=== PATIENT | female | born 1955 | race Caucasian/White ===

== ENCOUNTER 2019-10-22 07:30 | Inpatient (IN) ==
[2019-10-22] MEDS ORDERED: SCOPOLAMINE 1 PATCH PATCH TOPICAL PRN (07:37)
[2019-10-22] MEDS ORDERED: SODIUM CHLORIDE 0.9% IV ONE ×2 (09:02→09:03)
[2019-10-22] MEDS ORDERED: VANCOMYCIN IV ONE (09:02)
[2019-10-22] MEDS ORDERED: TOBRAMYCIN SULFATE IV ONE (09:03)
[2019-10-22] MEDS ORDERED: TOBRAMYCIN SULFATE 1.2 GM VIAL TOPICAL ONE (09:14)
[2019-10-22 09:15] LABS: Basophils # (Auto) 0.02 K/mcL (0.00-0.30); Basophils % (Auto) 0.2 % (0.0-2.0); Eosinophils # (Auto) 0.02 K/mcL (0.00-0.70); Eosinophils % (Auto) 0.2 % (0.0-7.0); Granulocytes % (Auto) 81.4 % (38.0-78.0); Hematocrit 41.1 % (34.1-44.9); Hemoglobin 13.7 g/dL (11.2-15.7); Mean Cell Volume 93.2 fL (80.0-100.0); Mean Corpuscular HGB Conc 33.3 g/dL (31.0-36.0); Mean Platelet Volume 9.2 fL (7.4-10.4); Monocytes # (Auto) 0.66 K/mcL (0.10-0.90); Monocytes % (Auto) 7.2 % (1.0-12.0); Platelet Count 302 K/mcL (140-440); RBC 4.41 M/mcL (3.59-5.38); Red Cell Distribution Width 12.9 % (11.5-14.5); WBC 9.1 K/mcL (4.50-11.00)
[2019-10-22] MEDS ORDERED: VANCOMYCIN 1 GM VIAL TOPICAL ONE (09:15)
[2019-10-22 09:28] LABS: Appearance,Urine CLEAR; Bacteria,Urine 0 /hpf (0); Bilirubin,Urine NEG (NEG); Color,Urine YELLOW; Culture Indicated,Urine NO; Glucose,Urine (UA) NEGATIVE (NEG); Ketones,Urine 20 mg/dL (NEG); Leukocyte Esterase,Urine NEG /uL (NEG); Mucus,Urine MANY /hpf (0); Nitrate,Urine NEG (NEG); Protein,Urine 100 mg/dL (NEG); Specific Gravity,Urine 1.031 (1.000-1.035); Urine Amorphous Crystals FEW /hpf (0); Urine Blood NEG mg/dL (<0.03); Urine Hyaline Cast 11 /lpf (0-2); Urine RBC 1 /hpf (0-1); Urine Squamous Epithelial Cell 1 /hpf (0-4); Urine Transitional Epi Cells 1 /hpf (0-2); Urine WBC 8 /hpf (0-4)
[2019-10-22 09:40] LABS: Blood Urea Nitrogen 18 mg/dl (8-23); Calcium 9.3 mg/dl (8.6-10.4); Carbon Dioxide 24 mmol/L (22-30); Chloride 99 mmol/L (96-108); Glomerular Filtration Rate 59; Glucose 179 mg/dL (70-105)
[2019-10-22] MEDS ORDERED: ceFAZolin 3 GM in DEXTROSE 5% IN WATER 50 ML IV SCH (10:30)
[2019-10-22] MEDS ORDERED: PROPOFOL 200 MG/20 ML VIAL IV ONE (10:32)
[2019-10-22] MEDS ORDERED: DEXAMETHASONE 10 MG/ML VIAL ONE (10:32)
[2019-10-22] MEDS ORDERED: ONDANSETRON 4 MG/2 ML VIAL ONE (10:32)
[2019-10-22] MEDS ORDERED: KETAMINE HCL 50 MG/ML ML ONE (10:32)
[2019-10-22] MEDS ORDERED: fentaNYL 100 MCG/2 ML VIAL IV ONE (10:32)
[2019-10-22] MEDS ORDERED: HYDROmorphone 1 MG/ML SYRINGE ONE (10:32)
[2019-10-22] MEDS ORDERED: LIDOCAINE HCL/PF 100 MG/5 ML SYRINGE IV ONE (10:32)
[2019-10-22] MEDS ORDERED: VANCOMYCIN 1,500 MG in 0.9 % SODIUM CHLORIDE 500 ML IV SCH (10:45)
[2019-10-22] MEDS ORDERED: KETOROLAC 15 MG/ML VIAL IV PRN (11:16)
[2019-10-22] MEDS ORDERED: ACETAMINOPHEN 1,000 MG/100 ML BOTTLE IV ONE (11:16)
[2019-10-22] MEDS ORDERED: LACTATED RINGERS 250 ML IV PRN (11:16)
[2019-10-22] MEDS ORDERED: PROMETHAZINE 25 MG/ML VIAL IV PRN (11:16)
[2019-10-22] MEDS ORDERED: IPRATROPIUM/ALBUTEROL 3 ML AMPUL.NEB NEB PRN (11:16)
[2019-10-22] MEDS ORDERED: MEPERIDINE 25 MG/ML SYRINGE IV PRN (11:16)
[2019-10-22] MEDS ORDERED: HYDROmorphone 0.5 MG/0.5 ML SYRINGE IV PRN (11:16)
[2019-10-22] MEDS ORDERED: ONDANSETRON 4 MG/2 ML VIAL IV PRN ×2 (11:16→11:38)
[2019-10-22] MEDS ORDERED: diphenhydrAMINE 50 MG/ML VIAL IV PRN (11:16)
[2019-10-22] MEDS ORDERED: NALOXONE HCL 0.4 MG/ML VIAL IV PRN (11:16)
[2019-10-22] MEDS ORDERED: fentaNYL 100 MCG/2 ML VIAL IV PRN (11:16)
[2019-10-22] MEDS ORDERED: LACTATED RINGERS 1,000 ML IV SCH (11:30)
[2019-10-22] MEDS ORDERED: BISACODYL 10 MG SUPP.RECT PR PRN (11:38)
[2019-10-22] MEDS ORDERED: DEXTROSE 50% 50 ML VIAL IV PRN (11:38)
[2019-10-22] MEDS ORDERED: POLYETHYLENE GLYCOL 3350 17 GM PACKET PO PRN (11:38)
[2019-10-22] MEDS ORDERED: MAGNESIUM HYDROXIDE 30 ML ORAL.SUSP PO PRN (11:38)
[2019-10-22] MEDS ORDERED: FLEETS ADULT ENEMA PR PRN (11:38)
[2019-10-22] MEDS ORDERED: BENZOCAINE/MENTHOL 1 LOZENGE PO PRN (11:38)
[2019-10-22] MEDS ORDERED: DEXTROSE 31 GM ORAL.SUSP PO PRN (11:38)
--- NOTE | 2019-10-22 11:38 | Brief Operative Note ---
Brief Operative Note Date of procedure: 10/22/19 Pre-op diagnosis: Infected total knee arthoplasty Post-op diagnosis: same Procedure: Right knee I&D with polyethylene insert exchange, and placement of antibiotic beads Grafts/Implants: Yes (12mm CS insert) Anesthesia: GLMA Findings: findings consistant with infection, no gross purulence however Complications: none Surgeon: Delonte Kendall Fan Runner: Seema Rivero Estimated blood loss (cc): 30 Specimens Removed/Pathology: other (culture and sensitivity x 2) Condition: stable Disposition: PACU
[2019-10-22] MEDS ORDERED: VANCOMYCIN PER PHARMACY IV SCH (11:46)
--- NOTE | 2019-10-22 12:07 | Internal Medicine Consult Note ---
HPI Consult Narrative cc:: CC: Priyank Kerr 64-year-old female who underwent right total knee arthroplasty 5 weeks ago and did well postoperatively however the past week has developed increased redness swelling to the joint. Arthrocentesis and fluid analysis consistent with infection. Patient underwent washout with polyethylene exchange and antibiotic bead placement today. Past medical history please diabetes hypertension obstructive sleep apnea. Patient is still sedated from anesthesia and unable to gather review of systems PFSH PFS Social History (Updated 10/22/19 @ 12:04 by Priyank Kerr DO) smoking status: Never smoker additional history: Past medical history: Diabetes hypertension obstructive sleep apnea GERD Past surgical history: Right total knee arthroplasty 5 weeks ago, right shoulder surgery, hysterectomy, appendectomy Family history: Social history: Patient denies tobacco or alcohol MEDS/ALLERGIES Home Medications and Allergies Home Medications Medication Instructions Recorded Confirmed Type duloxetine 60 mg PO DAILY 09/06/19 09/15/19 History hydrochlorothiazide 12.5 mg PO DAILY 09/06/19 09/15/19 History omeprazole 20 mg PO HS 09/06/19 09/15/19 History ropinirole 1 mg PO HS 09/06/19 09/15/19 History aspirin 81 mg PO BID #30 tab.chew 09/16/19 Rx hydrocodone-acetaminophen 1 - 2 each PO Q6 #75 tab 09/16/19 Rx meloxicam 7.5 mg PO QAM #30 tab 09/16/19 Rx Allergies Allergy/AdvReac Type Severity Reaction Status Date / Time Penicillins Allergy Severe Anaphylaxis Verified 09/06/19 14:15 Sulfa (Sulfonamide Allergy Severe Swelling Verified 09/06/19 14:15 Antibiotics) of Lip/Tongue/Throat EXAM Constitutional Vitals: Temp Resp BP Pulse Ox 97.0 F 14 128/82 97 10/22/19 08:12 10/22/19 08:12 10/22/19 08:12 10/22/19 08:12 Exam: General: Sleeping from anesthesia fact postop, no acute Distress Eyes/N/T: PERRL, Head/Neck: neck supple, normocephalic atraumatic CV: RRR, No murmurs, normal s1/s2 Pulm: Clear b/l, no wheezing/rhonchi/rales Abd: soft, nontender, +BS x4 Ext: no clubbing/cyanosis/edema. Right knee and dressings Neuro: Sedated from anesthesia, pupils equal round and reactive Skin: warm/dry DATA Data Completed and Pending Labs on day of discharge: Labs from last 24 hours 10/22/19 10/22/19 10/22/19 08:08 08:08 08:00 WBC 9.1 RBC 4.41 Hgb 13.7 Hct 41.1 MCV 93.2 MCH 31.1 MCHC 33.3 RDW 12.9 Plt Count 302 MPV 9.2 Gran % 81.4 H Lymph % (Auto) 11.0 L Mcdonald % (Auto) 7.2 Eos % (Auto) 0.2 Baso % (Auto) 0.2 Gran # 7.41 Lymph # (Auto) 1.00 L Mcdonald # (Auto) 0.66 Eos # (Auto) 0.02 Baso # (Auto) 0.02 Sodium 137 Potassium 3.3 Chloride 99 Carbon Dioxide 24 Anion Gap 14.0 BUN 18 Creatinine 1.0 GFR Calculation 59 Glucose 179 H Calcium 9.3 Urine Color Yellow Urine Appearance Clear Urine pH 5.0 Ur Specific [place] 1.031 Urine Protein 100 A Urine Glucose (UA) Negative Urine Ketones 20 A Urine Occult Blood Neg Urine Nitrate Neg Urine Bilirubin Neg Urine Urobilinogen 2.0 A Ur Leukocyte Esterase Neg Urine RBC 1 Urine WBC 8 H Ur Squamous Epith Cells 1 Ur Transition Epith Cell 1 Amorphous Crystals Few A Urine Bacteria 0 Hyaline Casts 11 H Urine Mucus Many A Ur Culture Indicated? No COVID-19 PCR 10/22/19 08:00 WBC RBC Hgb Hct MCV MCH MCHC RDW Plt Count MPV Gran % Lymph % (Auto) Mcdonald % (Auto) Eos % (Auto) Baso % (Auto) Gran # Lymph # (Auto) Mcdonald # (Auto) Eos # (Auto) Baso # (Auto) Sodium Potassium Chloride Carbon Dioxide Anion Gap BUN Creatinine GFR Calculation Glucose Calcium Urine Color Urine Appearance Urine pH Ur Specific [place] Urine Protein Urine Glucose (UA) Urine Ketones Urine Occult Blood Urine Nitrate Urine Bilirubin Urine Urobilinogen Ur Leukocyte Esterase Urine RBC Urine WBC Ur Squamous Epith Cells Ur Transition Epith Cell Amorphous Crystals Urine Bacteria Hyaline Casts Urine Mucus Ur Culture Indicated? COVID-19 PCR Covid-19 negative A/P Narrative A/P Narrative: A: *Right knee prosthetic joint infection:* *DM: *HTN: *KAREN: *GERD: *Depression: P: -Abx per ID, Vanc/Rocephin pending wound and blood cx's -cont home hctz in AM - -SSI -pt/ot -ppx: per ortho/home ppi Time Spent With Patient Time: Total time spent is greater than 50% in coordination of care (as documented) at patient's floor/unit and/or counseling patient:
[2019-10-22] MEDS ORDERED: cefTRIAXone 2 GM in DEXTROSE 5% IN WATER 50 ML IV SCH (12:15)
--- NOTE | 2019-10-22 12:24 | Infectious Disease Consult ---
HPI Consult Narrative cc:: CC: Priyank Kerr 64-year-old lady with recent Hx of right total knee arthroplasty about 5 weeks ago, with complete post-op recovery was seen yesterday by her Ortho surgeon with c/o redness, swelling and pain in right knee for few days. A knee tap revealed very high number of PMNs in synovial fluid. Pt was taken to OR by Dr Kendall and underwent washout with polyethylene exchange and antibiotic bead placement. Pt was seen in PACU and couldnot provide any Hx due to her mental status. Labs reveal normal WBC and Cr. Review of Systems ROS unobtainable: due to mental status PFSH PFS Social History smoking status: Never smoker additional history: Past medical history: Diabetes hypertension obstructive sleep apnea GERD Past surgical history: Right total knee arthroplasty 5 weeks ago, right shoulder surgery, hysterectomy, appendectomy Family history: Social history: Patient denies tobacco or alcohol MEDS/ALLERGIES Home Medications and Allergies Home Medications Medication Instructions Recorded Confirmed Type duloxetine 60 mg PO DAILY 09/06/19 09/15/19 History hydrochlorothiazide 12.5 mg PO DAILY 09/06/19 09/15/19 History omeprazole 20 mg PO HS 09/06/19 09/15/19 History ropinirole 1 mg PO HS 09/06/19 09/15/19 History aspirin 81 mg PO BID #30 tab.chew 09/16/19 Rx hydrocodone-acetaminophen 1 - 2 each PO Q6 #75 tab 09/16/19 Rx meloxicam 7.5 mg PO QAM #30 tab 09/16/19 Rx Allergies Allergy/AdvReac Type Severity Reaction Status Date / Time Penicillins Allergy Severe Anaphylaxis Verified 09/06/19 14:15 Sulfa (Sulfonamide Allergy Severe Swelling Verified 09/06/19 14:15 Antibiotics) of Lip/Tongue/Throat Physical Examination Vital Signs Vital signs: Temp Resp BP Pulse Ox 36.1 C 14 128/82 97 10/22/19 08:12 10/22/19 08:12 10/22/19 08:12 10/22/19 08:12 Constitutional General appearance: comatose (recovering from anesthesia) Respiratory Auscultation: bilateral: clear Cardiovascular Cardiovascular: regular rate and rhythm Gastrointestinal Gastrointestinal: normoactive bowel sounds Musculoskeletal Musculoskeletal: other (right knee in surgical dressing ) Results Laboratory Findings CBC and BMP: 10/22/19 08:08 10/22/19 08:08 Abnormal lab findings: Abnormal Labs 10/22/19 10/22/19 10/22/19 08:00 08:08 08:08 Gran % 81.4 H Lymph % (Auto) 11.0 L Lymph # (Auto) 1.00 L Glucose 179 H Urine Protein 100 A Urine Ketones 20 A Urine Urobilinogen 2.0 A Urine WBC 8 H Amorphous Crystals Few A Hyaline Casts 11 H Urine Mucus Many A A/P Narrative A/P Narrative: A: 1. Rt knee prosthetic joint infection: based on clinical signs/symptoms of redness and swelling, and pain; and high WBC count of synovial fluid aspirated 10/20 - Cx so far NGTD - s/p irrigation and debridement with Polyethylene exchange and placement of antibiotic beads today. Per Ortho plan is for one-stage exchange and no subseq surgeries 2. DM2 Recommendations: - Continue IV Vanc per pharmacy assisted dosing. Check trough before the 4th dose (target 10-20) - Start IV Ceftriaxone 2 gm q24 hrs, 1st dose now - await C/S to decide further choice and duration of therapy - will add PO Rifampin before discharge as 300 mg bid. - send 2 sets of blood Cx - anticipate 6 weeks of IV therapy and rest PO therapy for 4.5 mntths - await MRSA nasal swab. If positive, will consider decolonization with 5 day course of intranasal mupirocin bid and below neck whole body chlorhexidine. will follow Rafael Ulloa MD Infectious Diseases Time Spent With Patient Time: Total time spent is greater than 50% in coordination of care (as documented) at patient's floor/unit and/or counseling patient:
--- NOTE | 2019-10-22 12:26 | Nephrology Progress Note ---
SUBJECTIVE Subjective Patient information: Note initiated : 10/22/19 at 12:24 pm Service Date, if different from initiated Date: [] Patient: Sherley Howard 64 y/o F admitted on 10/22/19 for Right Knee I&D. Chief Complaint: [No urine output] Interval history: Narrative: Constitutional Vitals: Vital Signs Temp Resp BP Pulse Ox 36.1 C 14 128/82 97 10/22/19 08:12 10/22/19 08:12 10/22/19 08:12 10/22/19 08:12 Period Temp Pulse Resp BP Sys/Spann Pulse Ox Last 24 Hr 36.1 C 14 128/82 97 Intake and Output 10/21/19 10/22/19 10/22/19 21:59 05:59 13:59 Intake Total 236 Balance 236 Weight 74.162 kg Patient Weight 10/23/19 05:59 Weight 74.162 kg Intake & Output: Intake & Output 10/21/19 10/22/19 10/22/19 21:59 05:59 13:59 Intake Total 236 Balance 236 Weight 74.162 kg Intake: Clear Carbohydrate Drink 236 A/P Narrative A/P Narrative: Narrative: Time Spent With Patient Time: Total time spent is greater than 50% in coordination of care (as docume nted) at patient's floor/unit and/or counseling patient:
[2019-10-22] MEDS: cefTRIAXone 2 GM in DEXTROSE 5% IN WATER 50 ML IV SCH (12:33)
[2019-10-22] MEDS: 0.9 % SODIUM CHLORIDE 1,000 ML IV SCH ×2 (13:19→22:43)
--- NOTE | 2019-10-22 13:38 | XRay Report ---
HISTORY: Postop incision and drainage of infected right knee FINDINGS: Multiple radiopaque pellets have been inserted into the joint. The majority of them are in the suprapatellar bursa. Many of them appear to extend beyond the upper border of a normal suprapatellar bursa. The overall diameter of the pellets is approximately 5 mm in diameter. The joint prosthesis appears well-positioned. There is no evidence of osteomyelitis or loosening of the prosthesis. No fracture or destructive bone lesion are present. There is a surgical drain along the lateral aspect of the suprapatellar bursa. IMPRESSION: Knee joint space distended with numerous surgically implanted antibiotic pellets Interpreted and Authenticated by: Zacarias Rivas 10/22/19
[2019-10-22] MEDS: 0.9 % SODIUM CHLORIDE 10 ML SYRINGE IV SCH ×2 (14:08→21:13)
[2019-10-22] MEDS: HYDROcodone/APAP 10/325MG TABLET PO PRN ×3 (15:23→23:32)
[2019-10-22] MEDS: INSULIN LISPRO 1 UNIT/0.01 ML UNIT SQ SCH ×2 (16:56→21:11)
[2019-10-22] MEDS ORDERED: HYDROCHLOROTHIAZIDE 12.5 MG CAPSULE PO SCH (21:00)
[2019-10-22] MEDS: DOCUSATE SODIUM 100 MG CAPSULE PO SCH (21:12)
[2019-10-22] MEDS: OMEPRAZOLE 20 MG CAPSULE PO SCH (21:12)
[2019-10-22] MEDS: rOPINIRole 1 MG TABLET PO SCH (21:12)
[2019-10-22] MEDS: ASPIRIN 81 MG TAB.CHEW PO SCH (21:12)
[2019-10-22] MEDS: SENNOSIDES 1 TABLET PO SCH (21:12)
[2019-10-22] MEDS: VANCOMYCIN 1,000 MG in 0.9 % SODIUM CHLORIDE 250 ML IV SCH (22:43)
[2019-10-23] MEDS: HYDROcodone/APAP 10/325MG TABLET PO PRN ×4 (03:29→22:01)
[2019-10-23] MEDS: 0.9 % SODIUM CHLORIDE 10 ML SYRINGE IV SCH ×3 (04:39→20:14)
[2019-10-23 06:25] LABS: Basophils # (Auto) 0.01 K/mcL (0.00-0.30); Basophils % (Auto) 0.1 % (0.0-2.0); Eosinophils # (Auto) 0.02 K/mcL (0.00-0.70); Eosinophils % (Auto) 0.3 % (0.0-7.0); Granulocytes % (Auto) 66.6 % (38.0-78.0); Hematocrit 32.5 % (34.1-44.9); Hemoglobin 10.8 g/dL (11.2-15.7); Lymphocytes # (Auto) 1.72 K/mcL (1.50-4.80); Lymphocytes % (Auto) 24.3 % (15.5-49.0); Mean Corpuscular HGB Conc 33.2 g/dL (31.0-36.0); Mean Platelet Volume 9.4 fL (7.4-10.4); Monocytes # (Auto) 0.62 K/mcL (0.10-0.90); Monocytes % (Auto) 8.7 % (1.0-12.0); Platelet Count 249 K/mcL (140-440); RBC 3.42 M/mcL (3.59-5.38); WBC 7.1 K/mcL (4.50-11.00)
[2019-10-23] MEDS: INSULIN LISPRO 1 UNIT/0.01 ML UNIT SQ SCH ×4 (07:11→20:14)
[2019-10-23 07:30] LABS: Erythrocyte Sedimentation Rate 61 mm/hr (0-20)
--- NOTE | 2019-10-23 07:50 | General Surgery Progress Note ---
SUBJECTIVE Subjective Patient information: Note initiated : 10/23/19 at 7:45 am Service Date, if different from initiated Date: [] Patient: Sherley Howard 64 y/o F admitted on 10/22/19 for Right Knee I&D. Chief Complaint: [POD 1 s/p right knee I&D] Interval history: Narrative: No acute events overnight. Pain is controlled. Denies chest pain, shortness of breath or new complaints. Constitutional Vitals: Vital Signs Temp Pulse Resp BP Pulse Ox 97.7 F 64 16 110/62 97 10/23/19 03:26 10/23/19 03:26 10/23/19 03:26 10/23/19 03:26 10/23/19 03:26 Period Temp Pulse Resp BP Sys/Spann Pulse Ox Last 24 Hr 96.5 F-98.2 F 53-95 12-21 103-154/62-89 90-100 Intake and Output 10/22/19 10/23/19 10/23/19 21:59 05:59 13:59 Intake Total 880 1390 Output Total 480 715 Balance 400 675 Weight 189 lb Intake & Output: Intake & Output 10/22/19 10/23/19 10/23/19 21:59 05:59 13:59 Intake Total 880 1390 Output Total 480 715 Balance 400 675 Weight 189 lb Intake: IV 100 1190 Sodium Chloride 0.9% 1,000 ml @ 940 100 mls/hr IV .Q10H [facility] Rx#: [id number] Vancomycin 1,000 mg In Sodium 250 Chloride 0.9% 250 ml @ 250 mls/ hr IV Q12H [facility] Rx#:[id number] Oral 780 200 Output: Drainage 50 Right Knee 50 Drainage 30 15 Right Knee 30 15 Void Amount 400 700 Other: Meal Dinner Percent of Meal Consumed 100% Genera; alert and oriented, non acute distress, appropriate right knee: dressing is in place. Clean and dry with ROSEANN drain in place. Foot warm well perfused. A/P Narrative A/P Narrative: Narrative: POD 1 s/p right TKA I&D and poly exchange for infection -- WBAT-- PT/OT -- cultures pending: continue IV abx per ID- vanc -- d/c drain today -- PICC line for termite technician abx -- oral pain medications -- oral diet -- Prophy: IS, SCDs, dvt prophy, ambulation -- Dispo: pending on culture results.. They want to see if they can do IV abx at home. Time Spent With Patient Time: Total time spent is greater than 50% in coordination of care (as documented) at patient's floor/unit and/or counseling patient:
[2019-10-23] MEDS: ASPIRIN 81 MG TAB.CHEW PO SCH ×2 (08:37→20:13)
[2019-10-23] MEDS: DOCUSATE SODIUM 100 MG CAPSULE PO SCH ×2 (08:37→20:13)
[2019-10-23] MEDS: cefTRIAXone 2 GM in DEXTROSE 5% IN WATER 50 ML IV SCH (09:22)
[2019-10-23] MEDS: VANCOMYCIN 1,000 MG in 0.9 % SODIUM CHLORIDE 250 ML IV SCH ×2 (10:37→22:01)
[2019-10-23] MEDS: HYDROCHLOROTHIAZIDE 12.5 MG CAPSULE PO SCH (10:37)
[2019-10-23] MEDS: DULoxetine 30 MG CAPSULE PO SCH (10:41)
[2019-10-23] MEDS: 0.9 % SODIUM CHLORIDE 1,000 ML IV SCH ×2 (11:01→17:56)
[2019-10-23] MEDS: SENNOSIDES 1 TABLET PO SCH (20:13)
[2019-10-23] MEDS: OMEPRAZOLE 20 MG CAPSULE PO SCH (20:14)
[2019-10-23] MEDS: rOPINIRole 1 MG TABLET PO SCH (20:14)
[2019-10-23] MEDS ORDERED: METHOCARBAMOL 750 MG TABLET PO ONE (22:53)
[2019-10-24] MEDS: HYDROcodone/APAP 10/325MG TABLET PO PRN ×5 (01:54→23:14)
[2019-10-24] MEDS: 0.9 % SODIUM CHLORIDE 10 ML SYRINGE IV SCH ×3 (05:51→20:41)
[2019-10-24] MEDS: INSULIN LISPRO 1 UNIT/0.01 ML UNIT SQ SCH ×4 (07:22→20:45)
--- NOTE | 2019-10-24 08:31 | General Surgery Progress Note ---
SUBJECTIVE Subjective Patient information: Note initiated : 10/24/19 at 8:24 am Service Date, if different from initiated Date: [] Patient: Sherley Howard 64 y/o F admitted on 10/22/19 for Right Knee I&D. Chief Complaint: [S/P RIGHT KNEE I&d WITH LINER EXCHANGE AND ABX BEAD PLACEMENT] Interval history: Narrative:PATIENT IS DOING WELL AND CERTAINLY IMPROVED COMPARED TO PRE-OPERATIVELY. SHE HAS NO PARTICULAR COMPLAINTS TODAY. SHE DENIES ANY FEVER, CHILLS, OR CALF TENDERNESS. Constitutional Vitals: Vital Signs Temp Pulse Resp BP Pulse Ox 96.8 F L 72 18 126/77 95 10/24/19 07:17 10/24/19 07:17 10/24/19 07:17 10/24/19 07:17 10/24/19 07:17 Period Temp Pulse Resp BP Sys/Spann Pulse Ox Last 24 Hr 96.8 F-98.3 F 61-78 16-20 110-126/62-77 92-97 Intake and Output 10/23/19 10/24/19 10/24/19 21:59 05:59 13:59 Intake Total 860 710 Output Total 900 1500 Balance -40 -790 Weight 195 lb Intake & Output: Intake & Output 10/23/19 10/24/19 10/24/19 21:59 05:59 13:59 Intake Total 860 710 Output Total 900 1500 Balance -40 -790 Weight 195 lb Intake: IV 250 Vancomycin 1,000 mg In Sodium 250 Chloride 0.9% 250 ml @ 250 mls/ hr IV Q12H [facility] Rx#:[id number] Oral 860 460 Output: Void Amount 900 1500 Other: Meal Lunch Percent of Meal Consumed 100% Urine Appearance Clear Clear Urine Color Bright Yellow Pale Urine Odor Normal Normal Extremities Exam Extremities exam: Present calf tenderness (NEGATIVE BILATERALLY), Luiz's sign (NEGATIVE BILATERALLY), Foot pink and warm and neurovascular intact Additional comments: RIGHT KNEE INCISION IS HEALING AND DESTINI ARE INTACT. NO SIGNIFICANT DRAINAGE NOTED ON BANDAGE. Expanded Lower Extremity Exam Knee exam: Present swelling and tenderness A/P Assessment and plan (1) Septic joint of right knee joint: Status: Acute Narrative A/P Narrative: Narrative:CONTINUE ABX PER INFECTIOUS DISEASE. START PT. PICC LINE PLACEMENT TOMORROW. LIKELY DISCHARGE TO HOME TOMORROW FOLLOWING PICC LINE. FOLLOW-UP WITH JOSE IN 2 WEEKS FOR WOUND CHECK AND STAPLE REMOVAL. PLACE AQUACEL DRESSING PRIOR TO DISCHARGE x7DAYS. Time Spent With Patient Time: Total time spent is greater than 50% in coordination of care (as documented) at patient's floor/unit and/or counseling patient:
[2019-10-24] MEDS: DULoxetine 30 MG CAPSULE PO SCH (08:48)
[2019-10-24] MEDS: DOCUSATE SODIUM 100 MG CAPSULE PO SCH ×2 (08:48→21:37)
[2019-10-24] MEDS: ASPIRIN 81 MG TAB.CHEW PO SCH ×2 (08:49→21:37)
[2019-10-24] MEDS: cefTRIAXone 2 GM in DEXTROSE 5% IN WATER 50 ML IV SCH (08:49)
[2019-10-24] MEDS: HYDROCHLOROTHIAZIDE 12.5 MG CAPSULE PO SCH (08:49)
[2019-10-24] MEDS: VANCOMYCIN 1,000 MG in 0.9 % SODIUM CHLORIDE 250 ML IV SCH ×2 (10:12→21:38)
--- NOTE | 2019-10-24 14:00 | Internal Med Progress Note ---
SUBJECTIVE Subjective Patient information: Note initiated : 10/24/19 at 1:58 pm Service Date, if different from initiated Date: [] Patient: Sherley Howard 64 y/o F admitted on 10/22/19 for Right Knee I&D. Chief Complaint: [] Interval history: Narrative: Pt feels bettter. Still has knee pain, rates it 3-6/10 based on whether it is after or before taking her pain meds. Denied any n/v, diarrhea, fever, chills. Mentions that she lives in [facility]. She prefers home health for buttermaker helper IV antibiotics. Mentions her daughetr is a nurse and she lives with her. Her can also help with PICC line management based on his own experience.Mentions that she doesnt want to go to a correction. Constitutional Vitals: Vital Signs Temp Pulse Resp BP Pulse Ox 36.7 C 72 66 H 114/72 94 10/24/19 11:35 10/24/19 07:17 10/24/19 11:35 10/24/19 11:35 10/24/19 11:35 Period Temp Pulse Resp BP Sys/Spann Pulse Ox Last 24 Hr 36.0 C-36.8 C 61-78 16-66 110-126/62-77 92-97 Intake and Output 10/23/19 10/24/19 10/24/19 21:59 05:59 13:59 Intake Total 860 710 720 Output Total 900 1500 1300 Balance -40 -790 -580 Weight 88.451 kg 88.451 kg Patient Weight 10/25/19 05:59 Weight 88.451 kg Intake & Output: Intake & Output 10/23/19 10/24/19 10/24/19 21:59 05:59 13:59 Intake Total 860 710 720 Output Total 900 1500 1300 Balance -40 -790 -580 Weight 88.451 kg 88.451 kg Intake: IV 250 Vancomycin 1,000 mg In Sodium 250 Chloride 0.9% 250 ml @ 250 mls/ hr IV Q12H [facility] Rx#:[id number] Oral 860 460 720 Output: Void Amount 900 1500 1300 Other: Meal Lunch Lunch Percent of Meal Consumed 100% 75% Feeding Ability Independent Urine Appearance Clear Clear Clear Urine Color Bright Yellow Pale Pale Urine Odor Normal Normal Normal Exam: ao x 3, in nad right knee wrapped in surgical dressing, drain pulled out can wiggle toes of right foot without any difficulty OBJ DATA Labs CBC & Chem 7: 10/23/19 05:18 10/22/19 08:08 Labs: Abnormal Lab Results 10/23/19 10/23/19 10/22/19 05:18 05:18 08:08 RBC 3.42 L Hgb 10.8 L Hct 32.5 L Gran % Lymph % (Auto) Lymph # (Auto) ESR 61 H Glucose 179 H C-Reactive Protein 10.3 H Urine Protein Urine Ketones Urine Urobilinogen Urine WBC Amorphous Crystals Hyaline Casts Urine Mucus 10/22/19 10/22/19 08:08 08:00 RBC Hgb Hct Gran % 81.4 H Lymph % (Auto) 11.0 L Lymph # (Auto) 1.00 L ESR Glucose C-Reactive Protein Urine Protein 100 A Urine Ketones 20 A Urine Urobilinogen 2.0 A Urine WBC 8 H Amorphous Crystals Few A Hyaline Casts 11 H Urine Mucus Many A Meds: Medications Hydrocodone Bitart/Acetaminophen ([place] 10/325mg) 0 tab PO Q4HP PRN; Protocol PRN Reason: PAIN LEVEL 3-6 Last Admin: 10/24/19 13:20 Dose: 1 tab Documented by: Aspirin (Aspirin) 81 mg PO BID [facility] Last Admin: 10/24/19 08:49 Dose: 81 mg Documented by: Bisacodyl (Dulcolax) 10 mg NE Q2-3DAYS PRN PRN Reason: Constipation Dextrose (Dextrose 50%) 0 ml IV UD PRN PRN Reason: Hypoglycemia Diagnostic Test (Pha) (Accu-Chek) 1 each FS ACHS [facility] Last Admin: 10/24/19 11:32 Dose: 1 each Documented by: Diphenhydramine HCl (Benadryl) 25 mg PO Q6 [facility] Docusate Sodium (Colace) 100 mg PO BID [facility] Last Admin: 10/24/19 08:48 Dose: 100 mg Documented by: Duloxetine HCl (Cymbalta) 60 mg PO DAILY [facility] Last Admin: 10/24/19 08:48 Dose: 60 mg Documented by: Glucose (Insta-Glucose) 15 gm PO PRN PRN PRN Reason: Hypoglycemia Hydrochlorothiazide (O[place]ic) 12.5 mg PO DAILY [facility] Last Admin: 10/24/19 08:49 Dose: 12.5 mg Documented by: Ceftriaxone Sodium 2 gm/ (Dextrose) 50 mls @ 100 mls/hr IV Q24H [facility] Last Admin: 10/24/19 08:49 Dose: 100 mls/hr Documented by: Vancomycin HCl 1,000 mg/ (Sodium Chloride) 250 mls @ 250 mls/hr IV Q12H [facility] Last Admin: 10/24/19 10:12 Dose: 250 mls/hr Documented by: Insulin Human Lispro (Humalog) 0 unit SQ ACHS [facility]; Protocol Last Admin: 10/24/19 11:35 Dose: Not Given Documented by: Magnesium Hydroxide (Milk Of Magnesia) 30 ml PO BIDP PRN PRN Reason: Constipation Methocarbamol (Robaxin) 750 mg PO Q6HP PRN PRN Reason: Muscle Spasm Morphine Sulfate (Morphine) 0 mg IV Q1HP PRN; Protocol PRN Reason: PAIN LEVEL > 6 Last Admin: 10/23/19 07:22 Dose: 2 mg Documented by: Omeprazole (Prilosec) 20 mg PO QHS [facility] Last Admin: 10/23/19 20:14 Dose: 20 mg Documented by: Ondansetron HCl (Zofran) 4 mg IV Q4HP PRN; Protocol PRN Reason: Nausea And Vomiting Last Admin: 10/22/19 14:07 Dose: 4 mg Documented by: Polyethylene Glycol (Miralax) 17 gm PO DAILYP PRN PRN Reason: Constipation Ropinirole HCl (Requip) 1 mg PO [facility] Last Admin: 10/23/19 20:14 Dose: 1 mg Documented by: Scopolamine (Transderm-Scop) 1 patch TOPICAL PREOP PRN PRN Reason: Nausea And Vomiting Last Admin: 10/22/19 08:58 Dose: 1 patch Documented by: Senna (Senokot) 2 tab PO [facility] Last Admin: 10/23/19 20:13 Dose: 2 tab Documented by: Sodium Biphosphate/Sodium Phosphate (Fleets Adult) 1 dose NE Q3-4DAYS PRN PRN Reason: Constipation Sodium Chloride (Saline Flush) 10 ml IV Q8 [facility] Last Admin: 10/24/19 12:53 Dose: Not Given Documented by: Throat Lozenges (Cepacol) 1 lozenge PO PRN PRN PRN Reason: Sore Throat Vancomycin HCl (Vancomycin Per Pharmacy) 1 order IV UD [facility]; Protocol A/P Narrative A/P Narrative: Narrative: A: 1. Rt knee prosthetic joint infection: due to Staph epidermidis, sensi pending based on clinical signs/symptoms of redness and swelling, and pain; and high WBC count of synovial fluid aspirated 10/20 - blood Cx so far NGTD - s/p irrigation and debridement with Polyethylene exchange and placement of antibiotic beads today. Per Ortho plan is for one-stage exchange and no subseq surgeries - ON IV vanc and IV ceftriaxone. Vanc trough of 12.5 noted 2. DM2 Recommendations: - Continue IV Vanc per pharmacy assisted dosing. Check weekly levels - Continue IV Ceftriaxone 2 gm q24 hrs - await final sensitivity to decide further choice of therapy - start PO Rifampin 300 mg bid. - anticipate 6 weeks of IV therapy and rest PO therapy for 4.5 mnths - will talk to CM/SW about optimal disposition for pt as she lives in [place], ID: home health vs travel to a local hospital daily for IV antibiotics. - follow up labs: CBC, CMP weekly ESR and CRP every other week will follow Rafael Ulloa MD Infectious Diseases Time Spent With Patient Time: Total time spent is greater than 50% in coordination of care (as documented) at patient's floor/unit and/or counseling patient:
[2019-10-24] MEDS: METHOCARBAMOL 750 MG TABLET PO PRN ×2 (17:10→23:14)
[2019-10-24] MEDS: diphenhydrAMINE 25 MG CAPSULE PO SCH (17:12)
[2019-10-24] MEDS: RIFAMPIN 300 MG CAPSULE PO SCH (20:41)
[2019-10-24] MEDS: rOPINIRole 1 MG TABLET PO SCH (21:37)
[2019-10-24] MEDS: OMEPRAZOLE 20 MG CAPSULE PO SCH (21:37)
[2019-10-24] MEDS: SENNOSIDES 1 TABLET PO SCH (21:37)
[2019-10-25] MEDS: diphenhydrAMINE 25 MG CAPSULE PO SCH ×5 (01:00→23:46)
[2019-10-25] MEDS: HYDROcodone/APAP 10/325MG TABLET PO PRN ×5 (03:49→21:00)
[2019-10-25] MEDS: 0.9 % SODIUM CHLORIDE 10 ML SYRINGE IV SCH ×4 (06:26→20:51)
[2019-10-25] MEDS: RIFAMPIN 300 MG CAPSULE PO SCH ×2 (07:18→20:50)
[2019-10-25] MEDS: INSULIN LISPRO 1 UNIT/0.01 ML UNIT SQ SCH ×4 (07:24→20:53)
--- NOTE | 2019-10-25 07:51 | General Surgery Progress Note ---
SUBJECTIVE Subjective Patient information: Note initiated : 10/25/19 at 7:49 am Service Date, if different from initiated Date: [] Patient: Sherley Howard 64 y/o F admitted on 10/22/19 for Right Knee I&D. Chief Complaint: [] Interval history: Narrative: Feeling much better Constitutional Vitals: Vital Signs Temp Pulse Resp BP Pulse Ox 97.7 F 70 18 103/61 94 10/25/19 07:25 10/25/19 07:25 10/25/19 07:25 10/25/19 07:25 10/25/19 07:25 Period Temp Pulse Resp BP Sys/Spann Pulse Ox Last 24 Hr 97.2 F-98.8 F 68-79 16-66 103-127/61-81 93-98 Intake and Output 10/24/19 10/25/19 10/25/19 21:59 05:59 13:59 Intake Total 1360 790 Output Total 2550 900 Balance -1190 -110 Weight 193 lb 8 oz Intake & Output: Intake & Output 10/24/19 10/25/19 10/25/19 21:59 05:59 13:59 Intake Total 1360 790 Output Total 2550 900 Balance -1190 -110 Weight 193 lb 8 oz Intake: IV 250 Vancomycin 1,000 mg In Sodium 250 Chloride 0.9% 250 ml @ 250 mls/ hr IV Q12H [facility] Rx#:[id number] Oral 1360 540 Output: Void Amount 2550 900 Other: Meal Dinner Percent of Meal Consumed 100% Feeding Ability Independent Urine Appearance Clear Clear Urine Color Pale [place] Urine Odor Normal Normal A/P Narrative A/P Narrative: Narrative:POD#3 s/p I&D infected R TKA-stable awaiting picc line placement and abx sensitivities to be able to discharge ok to d/c from ortho standpoint whenever infectious disease is ready Time Spent With Patient Time: Total time spent is greater than 50% in coordination of care (as documented) at patient's floor/unit and/or counseling patient:
--- NOTE | 2019-10-25 08:36 | Operative Note ---
DATE OF OPERATION: 10/22/2019 PREOPERATIVE DIAGNOSIS: Right knee infected total knee arthroplasty. POSTOPERATIVE DIAGNOSIS: Right knee infected total knee arthroplasty. PROCEDURE PERFORMED: Incision and drainage with irrigation and debridement of right infected total knee arthroplasty with polyethylene exchange to a 12 mm cruciate substituting insert, as well as antibiotic bead placement. SURGEON: Delonte Kendall M.D. SALES REPRESENTATIVE UNIFORMS: Seema Rivero PA-C. The PA's assistance was required for the safe and efficient completion of the entire case. This provider's expertise and technical skill were required throughout the case. The PA assisted with preoperative coordination, intraoperative retraction, wound closure, dressing and splint application, as well as postoperative documentation and care coordination. DRAINS: Large Hemovac. SPECIMENS: Culture and sensitivity x2, as well as removed polyethylene insert. BLOOD LOSS: 30 mL. COMPLICATIONS: None. POSTOPERATIVE CONDITION: Stable. INDICATIONS FOR SURGERY: This is a 64-year-old female who underwent a total knee arthroplasty approximately 5 weeks ago by me. She had done well for the first 4 weeks and then starting week 5 had slowly increasing pain. She started developing fever and redness. She had the knee aspirated yesterday afternoon and white count in the knee fluid was over 70,000. She did have a low-grade fever. FINDINGS AT SURGERY: There were findings consistent with infection, although not gross purulence. There did appear to be a biofilm. Post-procedure showed a clean joint with satisfactory knee range of motion and stability. PROCEDURE IN DETAIL: The patient had been seen in preoperative holding and informed consent had been obtained after discussion of risks and benefits of surgery. Risks including, but not limited to, bleeding; continued infection; injury to nerves, blood vessels, and other surrounding structures; anesthetic risks; incomplete or no resolution of the infection; possibility of needing further washouts and surgery; possibility of stiffness, pain, swelling. She understood and wished to proceed. The correct operative site was marked and then patient was taken to the operating room. General anesthesia was induced. Timeout was performed verifying patient name, operative site, and plan after she had been carefully prepped and draped in normal sterile fashion. Ioban was used to cover all skin surfaces. Leg was elevated the tourniquet was inflated. Midline incision was used through her prior scar through skin and subcutaneous tissue. Upon getting to the subcutaneous, there did appear to be opening of the deep suture line at the superior medial aspect with some serosanguineous drainage. We went ahead and removed the suture material and then cultured the joint with two separate cultures. While not grossly purulent, there was what appeared to be bacterial biofilm in the joint. Once we fully exposed the joint, we removed the prior polyethylene insert and then began aggressively debriding and performing synovectomy removing the biofilm. Once we had removed all biofilm as reasonable as possible, we then filled the joint with a mixture of saline and iodine in a 50:50 ratio. The joint was filled and this was left for a minute, and then I pulse lavaged for a minute. We repeated this three more times. The last time then we irrigated with IrriSept. After a minute, I then flexed the knee up and the 12 insert was impacted. The antibiotic beads had already been made, and the knee was then re-extended. A large Hemovac was placed out the superior lateral pouch and then the antibiotic beads were placed in the joint. The knee was then flexed about 30 degrees and then a monofilament barbed suture was used to close the deep closure; one running mid-patella distally and one running mid-patella proximally. I then used a #1 PDS in a [id number] at the superior medial margin of the patella closure in the inferior medial just as reinforcement over the high stress area. I then did more Irrisept irrigation, after a minute more copious pulse lavage, and then 2-0 Monocryl was used for subcutaneous and michael for skin. Xeroform and sterile dressing were applied. The drain was sterilely hooked to suction and then patient was awakened, extubated, and transferred to recovery in stable condition. DELIA:[email or web address] Job ID: [id number] Doc ID: [id number] Delonte Kendall MD
[2019-10-25] MEDS: cefTRIAXone 2 GM in DEXTROSE 5% IN WATER 50 ML IV SCH (08:56)
[2019-10-25] MEDS: DULoxetine 30 MG CAPSULE PO SCH (08:57)
[2019-10-25] MEDS: HYDROCHLOROTHIAZIDE 12.5 MG CAPSULE PO SCH (08:57)
[2019-10-25] MEDS: ASPIRIN 81 MG TAB.CHEW PO SCH ×2 (08:58→20:51)
[2019-10-25] MEDS: DOCUSATE SODIUM 100 MG CAPSULE PO SCH ×2 (08:58→20:51)
[2019-10-25 10:18] LABS: Blood Urea Nitrogen 19 mg/dl (8-23); Calcium 10.2 mg/dl (8.6-10.4); Carbon Dioxide 29 mmol/L (22-30); Chloride 98 mmol/L (96-108); Glomerular Filtration Rate 77; Glucose 152 mg/dL (70-105)
--- NOTE | 2019-10-25 10:18 | Internal Med Progress Note ---
SUBJECTIVE Subjective Patient information: Note initiated : 10/25/19 at 10:16 am Service Date, if different from initiated Date: [] Patient: Sherley Howard 64 y/o F admitted on 10/22/19 for Right Knee I&D. Chief Complaint: [] Interval history: Pt feels better. Endorses nausea. Denied any vomiting, diarrhea, fever, chills. Discussed post discharge plans for IV antibiotics. Constitutional Vitals: Vital Signs Temp Pulse Resp BP Pulse Ox 36.5 C 70 18 103/61 94 10/25/19 07:25 10/25/19 07:25 10/25/19 07:25 10/25/19 07:25 10/25/19 07:25 Period Temp Pulse Resp BP Sys/Spann Pulse Ox Last 24 Hr 36.2 C-37.1 C 68-79 16-66 103-127/61-81 93-98 Intake and Output 10/24/19 10/25/19 10/25/19 21:59 05:59 13:59 Intake Total 1360 790 Output Total 2550 900 Balance -1190 -110 Weight 87.77 kg Intake & Output: Intake & Output 10/24/19 10/25/19 10/25/19 21:59 05:59 13:59 Intake Total 1360 790 Output Total 2550 900 Balance -1190 -110 Weight 87.77 kg Intake: IV 250 Vancomycin 1,000 mg In Sodium 250 Chloride 0.9% 250 ml @ 250 mls/ hr IV Q12H [facility] Rx#:[id number] Oral 1360 540 Output: Void Amount 2550 900 Other: Meal Dinner Percent of Meal Consumed 100% Feeding Ability Independent Urine Appearance Clear Clear Urine Color Pale [place] Urine Odor Normal Normal Exam: ao x 3, in nad right knee: the surgical incision looks fine, with michael in situ and without any gaping or drainage. No redness or swelling around the surgical incision. Tender + on the medial aspect of the incision can wiggle toes of right foot without any difficulty OBJ DATA Labs CBC & Chem 7: 10/23/19 05:18 10/22/19 08:08 Labs: Abnormal Lab Results 10/23/19 10/23/19 05:18 05:18 RBC 3.42 L Hgb 10.8 L Hct 32.5 L ESR 61 H C-Reactive Protein 10.3 H Meds: Medications Hydrocodone Bitart/Acetaminophen ([place] 10/325mg) 0 tab PO Q4HP PRN; Protocol PRN Reason: PAIN LEVEL 3-6 Last Admin: 10/25/19 08:57 Dose: 1 tab Documented by: Aspirin (Aspirin) 81 mg PO BID [facility] Last Admin: 10/25/19 08:58 Dose: 81 mg Documented by: Bisacodyl (Dulcolax) 10 mg [place] Q2-3DAYS PRN PRN Reason: Constipation Dextrose (Dextrose 50%) 0 ml IV UD PRN PRN Reason: Hypoglycemia Diagnostic Test (Pha) (Accu-Chek) 1 each FS ACHS [facility] Last Admin: 10/25/19 07:24 Dose: 1 each Documented by: Diphenhydramine HCl (Benadryl) 25 mg PO Q6 [facility] Last Admin: 10/25/19 06:26 Dose: 25 mg Documented by: Docusate Sodium (Colace) 100 mg PO BID [facility] Last Admin: 10/25/19 08:58 Dose: 100 mg Documented by: Duloxetine HCl (Cymbalta) 60 mg PO DAILY [facility] Last Admin: 10/25/19 08:57 Dose: 60 mg Documented by: Glucose (Insta-Glucose) 15 gm PO PRN PRN PRN Reason: Hypoglycemia Hydrochlorothiazide (O[place]) 12.5 mg PO DAILY [facility] Last Admin: 10/25/19 08:57 Dose: 12.5 mg Documented by: Ceftriaxone Sodium 2 gm/ (Dextrose) 50 mls @ 100 mls/hr IV Q24H [facility] Last Admin: 10/25/19 08:56 Dose: 100 mls/hr Documented by: Vancomycin HCl 1,000 mg/ (Sodium Chloride) 250 mls @ 250 mls/hr IV Q12H [facility] Last Infusion: 10/24/19 22:55 Dose: Infused Documented by: Insulin Human Lispro (Humalog) 0 unit SQ [facility]; Protocol Last Admin: 10/25/19 07:24 Dose: Not Given Documented by: Magnesium Hydroxide (Milk Of Magnesia) 30 ml PO BIDP PRN PRN Reason: Constipation Methocarbamol (Robaxin) 750 mg PO Q6HP PRN PRN Reason: Muscle Spasm Last Admin: 10/24/19 23:14 Dose: 750 mg Documented by: Morphine Sulfate (Morphine) 0 mg IV Q1HP PRN; Protocol PRN Reason: PAIN LEVEL > 6 Last Admin: 10/24/19 20:41 Dose: 2 mg Documented by: Omeprazole (Prilosec) 20 mg PO QHS [facility] Last Admin: 10/24/19 21:37 Dose: 20 mg Documented by: Ondansetron HCl (Zofran) 4 mg IV Q4HP PRN; Protocol PRN Reason: Nausea And Vomiting Last Admin: 10/22/19 14:07 Dose: 4 mg Documented by: Polyethylene Glycol (Miralax) 17 gm PO DAILYP PRN PRN Reason: Constipation Rifampin (Rifampin) 300 mg PO BID@0700,2000 [facility]; Protocol Last Admin: 10/25/19 07:18 Dose: 300 mg Documented by: Ropinirole HCl (Requip) 1 mg PO [facility] Last Admin: 10/24/19 21:37 Dose: 1 mg Documented by: Scopolamine (Transderm-Scop) 1 patch TOPICAL PREOP PRN PRN Reason: Nausea And Vomiting Last Admin: 10/22/19 08:58 Dose: 1 patch Documented by: Becky (Senokot) 2 tab PO [facility] Last Admin: 10/24/19 21:37 Dose: 2 tab Documented by: Sodium Biphosphate/Sodium Phosphate (Fleets Adult) 1 dose [place] Q3-4DAYS PRN PRN Reason: Constipation Sodium Chloride (Saline Flush) 10 ml IV Q8 [facility] Last Admin: 10/25/19 06:26 Dose: 10 ml Documented by: Throat Lozenges (Cepacol) 1 lozenge PO PRN PRN PRN Reason: Sore Throat Vancomycin HCl (Vancomycin Per Pharmacy) 1 order IV [facility]; Protocol A/P Time Spent With Patient Time: Total time spent is greater than 50% in coordination of care (as documented) at patient's floor/unit and/or counseling patient: A: 1. 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 Per Ortho plan is for one-stage exchange and no subseq surgeries - ON IV vanc and IV ceftriaxone. Vanc trough of 12.5 noted 2. DM2 Recommendations: - Stop IV Vanc and IV ceftriaxone - Start IV Daptomycin at 8 mg/kg (round off dose is 700 mg q24 hrs) - Check baseline CK - continue PO Rifampin 300 mg bid. - PICC line placement today - anticipate 6 weeks of IV therapy and rest PO therapy for 4.5 mnths - Per CM: pt will do IV Daptomycin Mon-Fri at [facility] and on Friday- Friday at [facility] - follow up labs: BMP, CK weekly ESR and CRP every other week - ID clinic f/u in 5 weeks. Rafael Ulloa MD Infectious Diseases
[2019-10-25] MEDS: VANCOMYCIN 1,000 MG in 0.9 % SODIUM CHLORIDE 250 ML IV SCH (11:25)
[2019-10-25] MEDS: DAPTOmycin 500 MG VIAL IV SCH (13:34)
--- NOTE | 2019-10-25 14:30 | XRay Report ---
INDICATION: PICC Placement TECHNIQUE: AP portable chest x-ray COMPARISON: None FINDINGS: Lungs:Lungs are negative. No focal pulmonary parenchymal infiltrate or mass Heart, vascular:No significant cardiomegaly. Pulmonary vascularity is normal. No pulmonary edema or pulmonary congestion. There is a left-sided PICC line with its tip in the proximal right atrium. This catheter could be pulled back 2 cm to the junction of the superior vena cava and right atrium. Mediastinum, suman:No mediastinal widening. No hilar mass Pleura:No pleural fluid. No pleural-based mass or calcification Skeletal:Negative. IMPRESSION: Left-sided PICC line with its tip in the proximal right atrium Interpreted and Authenticated by: Enoch Sinha 10/25/19
[2019-10-25] MEDS ORDERED: 0.9 % SODIUM CHLORIDE 10 ML SYRINGE IV PRN (17:01)
[2019-10-25] MEDS: METHOCARBAMOL 750 MG TABLET PO PRN (20:50)
[2019-10-25] MEDS: SENNOSIDES 1 TABLET PO SCH (20:50)
[2019-10-25] MEDS: rOPINIRole 1 MG TABLET PO SCH (20:50)
[2019-10-25] MEDS: OMEPRAZOLE 20 MG CAPSULE PO SCH (20:51)
[2019-10-26] MEDS: HYDROcodone/APAP 10/325MG TABLET PO PRN ×3 (01:28→12:17)
[2019-10-26] MEDS: diphenhydrAMINE 25 MG CAPSULE PO SCH ×2 (05:51→16:21)
[2019-10-26] MEDS: RIFAMPIN 300 MG CAPSULE PO SCH (07:01)
[2019-10-26] MEDS: INSULIN LISPRO 1 UNIT/0.01 ML UNIT SQ SCH ×2 (07:13→16:20)
[2019-10-26] MEDS: DULoxetine 30 MG CAPSULE PO SCH (09:41)
[2019-10-26] MEDS: HYDROCHLOROTHIAZIDE 12.5 MG CAPSULE PO SCH (09:41)
[2019-10-26] MEDS: DOCUSATE SODIUM 100 MG CAPSULE PO SCH (09:41)
[2019-10-26] MEDS: ASPIRIN 81 MG TAB.CHEW PO SCH (09:41)
[2019-10-26] MEDS: 0.9 % SODIUM CHLORIDE 10 ML SYRINGE IV SCH (09:42)
--- NOTE | 2019-10-26 11:27 | Discharge Summary ---
Discharge Provider Provider Patient information: Note initiated : 10/26/19 at 11:25 am Service Date, if different from initiated Date: [] Patient: Sherley Howard 64 y/o F admitted on 10/22/19 for Right Knee I&D. Chief Complaint: [infected knee replacement] Date of admission: 10/22/19 11:39 Discharge date: 10/26/19 Consults: 10/22/19 11:48 Consult to Infectious Disease [CONS] Routine Comment: Consulting Provider: Rafael Ulloa Reason For Exam: Physician to Consult COURSE Hospital Course Discharge diagnosis: infected total knee arthroplasty Procedures: I&D and revision of 1 component of infected total knee arthroplasty Pertinent studies/significant findings: culture grew coag neg staph aureus Complications: none Time Spent with Patient Time attestation: Total time spent providing and/or coordinating discharge services: Physical Examination Narrative Exam Narrative: dressing clean and dry Discharge Instructions - TKA Patient Instructions Total Knee Protocol: For Total Knee: Start ROM PATRICIA with stationary bike or rocking chair. Work on gaining full extension of knee. Posterior dislocation precautions provided. Hip abductor strengthening and gait training instructions provided. Apply Cryocuff as instructed. Discharge Plan Patient/Caregiver Discharge Instructions Activity: increase activity as tolerated Diet: Consistent Carbohydrate Prescriptions: New hydrocodone-acetaminophen 7.5-325 mg Tablet 1 - 2 tab PO Q4H PRN (Reason: Pain) Qty: 60 RF: 0 No Action omeprazole 20 MG capsule 20 mg PO HS RF: 0 ropinirole 1 MG tablet 1 mg PO HS RF: 0 hydrochlorothiazide 25 MG tablet 12.5 mg PO DAILY RF: 0 duloxetine 60 MG capsule,delayed release(DR/EC) 60 mg PO DAILY RF: 0 aspirin 81 MG tablet,chewable 81 mg PO BID Qty: 30 RF: 0 hydrocodone-acetaminophen 1 EACH tablet 1 - 2 each PO Q6 Qty: 75 RF: 0 Other Ambulatory Orders: Basic Metabolic Panel (Routine) Timeframe: 6 Weeks Facility: [facility] - Location: Laboratory Ordered By: Rafael Ulloa Creatine Kinase (Routine) Timeframe: 6 Weeks Facility: [facility] - Location: Laboratory Ordered By: Rafael Ulloa C-Reactive Protein (Routine) Timeframe: 6 Weeks Facility: [facility] - Location: Laboratory Ordered By: Rafael Ulloa Erythrocyte Sedimentation Rate (Routine) Timeframe: 6 Weeks Facility: [facility] - Location: Laboratory Ordered By: Rafael Ulloa Outpatient PICC Care (Daily) Location: None Selected Ordered By: Rafael Ulloa Follow Up Plan Follow up with: Rafael Ulloa MD [Physician] - 11/30/19 1:45 pm Delonte Kendall MD [Physician] - 11/05/19 10:20 am Patient Disposition: Home, Self-Care Rehab Potential: Good Discharge Orders: Discharge Order (Routine); Ordered 10/26/19 Ordered By: Delonte Kendall Pending Pending Pending: Resuscitation Status Full Code Diet Consistent Carbohydrate Diet Start FriOct 24 1331 Hydrocodone Bitart/Acetaminophen ([place] 10/325mg) 0 tab PO Q4HP PRN; Protocol PRN Reason: PAIN LEVEL 3-6 Last Admin: 10/26/19 05:51 Dose: 1 tab Documented by: Admin: 10/26/19 01:28 Dose: 2 tab Documented by: Admin: 10/25/19 21:00 Dose: 2 tab Documented by: Admin: 10/25/19 16:41 Dose: 2 tab Documented by: Admin: 10/25/19 11:37 Dose: 1 tab Documented by: Admin: 10/25/19 08:57 Dose: 1 tab Documented by: Admin: 10/25/19 03:49 Dose: 1 tab Documented by: Admin: 10/24/19 23:14 Dose: 2 tab Documented by: Admin: 10/24/19 19:00 Dose: 2 tab Documented by: Admin: 10/24/19 13:20 Dose: 1 tab Documented by: Admin: 10/24/19 05:49 Dose: 1 tab Documented by: Admin: 10/24/19 01:54 Dose: 2 tab Documented by: Admin: 10/23/19 22:01 Dose: 2 tab Documented by: Admin: 10/23/19 16:46 Dose: 2 tab Documented by: Admin: 10/23/19 08:37 Dose: 2 tab Documented by: Admin: 10/23/19 03:29 Dose: 1 tab Documented by: Admin: 10/22/19 23:32 Dose: 1 tab Documented by: Admin: 10/22/19 19:39 Dose: 1 tab Documented by: Admin: 10/22/19 15:23 Dose: 1 tab Documented by: KATIA Aspirin (Aspirin) 81 mg PO BID [facility] Last Admin: 10/26/19 09:41 Dose: 81 mg Documented by: Admin: 10/25/19 20:51 Dose: 81 mg Documented by: Admin: 10/25/19 08:58 Dose: 81 mg Documented by: Admin: 10/24/19 21:37 Dose: 81 mg Documented by: Admin: 10/24/19 08:49 Dose: 81 mg Documented by: Admin: 10/23/19 20:13 Dose: 81 mg Documented by: Admin: 10/23/19 08:37 Dose: 81 mg Documented by: Admin: 10/22/19 21:12 Dose: 81 mg Documented by: JULITO Daptomycin (Cubicin) 700 mg 8 mg/kg (700 mg) IV DAILY [facility]; Protocol Last Admin: 10/25/19 13:34 Dose: 700 mg Documented by: CARLOS Diagnostic Test (Pha) (Accu-Chek) 1 each FS ACHS [facility] Last Admin: 10/26/19 07:12 Dose: 1 each Documented by: Admin: 10/25/19 20:49 Dose: 1 each Documented by: Admin: 10/25/19 17:35 Dose: 1 each Documented by: Admin: 10/25/19 12:09 Dose: 1 each Documented by: Admin: 10/25/19 07:24 Dose: 1 each Documented by: Admin: 10/24/19 20:44 Dose: 1 each Documented by: Admin: 10/24/19 17:05 Dose: 1 each Documented by: Admin: 10/24/19 11:32 Dose: 1 each Documented by: Admin: 10/24/19 07:22 Dose: 1 each Documented by: Admin: 10/23/19 20:13 Dose: 1 each Documented by: Admin: 10/23/19 16:58 Dose: 1 each Documented by: Admin: 10/23/19 11:46 Dose: 1 each Documented by: Admin: 10/23/19 07:11 Dose: 1 each Documented by: Admin: 10/22/19 21:11 Dose: 1 each Documented by: Admin: 10/22/19 16:46 Dose: 1 each Documented by: KATIA Diphenhydramine HCl (Benadryl) 25 mg PO Q6 [facility] Admin: 10/26/19 05:51 Dose: 25 mg Documented by: Admin: 10/25/19 23:46 Dose: 25 mg Documented by: Admin: 10/25/19 17:35 Dose: 25 mg Documented by: Admin: 10/25/19 12:40 Dose: 25 mg Documented by: Admin: 10/25/19 06:26 Dose: 25 mg Documented by: Admin: 10/25/19 01:00 Dose: Not Given Documented by: Admin: 10/24/19 17:12 Dose: 25 mg Documented by: DERECK Docusate Sodium (Colace) 100 mg PO BID [facility] Admin: 10/26/19 09:41 Dose: 100 mg Documented by: Admin: 10/25/19 20:51 Dose: 100 mg Documented by: Admin: 10/25/19 08:58 Dose: 100 mg Documented by: Admin: 10/24/19 21:37 Dose: 100 mg Documented by: Admin: 10/24/19 08:48 Dose: 100 mg Documented by: Admin: 10/23/19 20:13 Dose: 100 mg Documented by: Admin: 10/23/19 08:37 Dose: 100 mg Documented by: Admin: 10/22/19 21:12 Dose: 100 mg Documented by: JULITO Duloxetine HCl (Cymbalta) 60 mg PO DAILY [facility] Admin: 10/26/19 09:41 Dose: 60 mg Documented by: Admin: 10/25/19 08:57 Dose: 60 mg Documented by: Admin: 10/24/19 08:48 Dose: 60 mg Documented by: Admin: 10/23/19 10:41 Dose: 60 mg Documented by: RUBEN Heparin Sodium (Porcine) (Heparin 10 Units/Ml Flush) 2 ml IV Q12 [facility] Last Admin: 10/26/19 09:42 Dose: 2 ml Documented by: Admin: 10/25/19 20:51 Dose: 2 ml Documented by: ALEJANDRA Hydrochlorothiazide (Oretic) 12.5 mg PO DAILY [facility] Last Admin: 10/26/19 09:41 Dose: 12.5 mg Documented by: Admin: 10/25/19 08:57 Dose: 12.5 mg Documented by: Admin: 10/24/19 08:49 Dose: 12.5 mg Documented by: Admin: 10/23/19 10:37 Dose: 12.5 mg Documented by: RUBEN Insulin Human Lispro (Humalog) 0 unit SQ A[facility]S [facility]; Protocol Last Admin: 10/26/19 07:13 Dose: Not Given Documented by: Admin: 10/25/19 20:53 Dose: Not Given Documented by: Admin: 10/25/19 17:35 Dose: Not Given Documented by: Admin: 10/25/19 12:09 Dose: Not Given Documented by: Admin: 10/25/19 07:24 Dose: Not Given Documented by: Admin: 10/24/19 20:45 Dose: Not Given Documented by: Admin: 10/24/19 17:09 Dose: Not Given Documented by: Admin: 10/24/19 11:35 Dose: Not Given Documented by: Admin: 10/24/19 07:22 Dose: Not Given Documented by: Admin: 10/23/19 20:14 Dose: Not Given Documented by: Admin: 10/23/19 16:59 Dose: Not Given Documented by: Admin: 10/23/19 11:46 Dose: Not Given Documented by: Admin: 10/23/19 07:11 Dose: Not Given Documented by: Admin: 10/22/19 21:11 Dose: 2 units Documented by: Admin: 10/22/19 16:56 Dose: Not Given Documented by: KATIA Methocarbamol (Robaxin) 750 mg PO Q6HP PRN PRN Reason: Muscle Spasm Last Admin: 10/25/19 20:50 Dose: 750 mg Documented by: Admin: 10/24/19 23:14 Dose: 750 mg Documented by: Admin: 10/24/19 17:10 Dose: 750 mg Documented by: DERECK Morphine Sulfate (Morphine) 0 mg IV Q1HP PRN; Protocol PRN Reason: PAIN LEVEL > 6 Last Admin: 10/24/19 20:41 Dose: 2 mg Documented by: Admin: 10/23/19 07:22 Dose: 2 mg Documented by: [email or web address] Omeprazole (Prilosec) 20 mg PO QHS [facility] Last Admin: 10/25/19 20:51 Dose: 20 mg Documented by: Admin: 10/24/19 21:37 Dose: 20 mg Documented by: Admin: 10/23/19 20:14 Dose: 20 mg Documented by: Admin: 10/22/19 21:12 Dose: 20 mg Documented by: JULITO Ondansetron HCl (Zofran) 4 mg IV Q4HP PRN; Protocol PRN Reason: Nausea And Vomiting Last Admin: 10/22/19 14:07 Dose: 4 mg Documented by: [email or web address] Rifampin (Rifampin) 300 mg PO BID@0700,1999 [facility]; Protocol Last Admin: 10/26/19 07:01 Dose: 300 mg Documented by: [email or web address] Admin: 10/25/19 20:50 Dose: 300 mg Documented by: Admin: 10/25/19 07:18 Dose: 300 mg Documented by: Admin: 10/24/19 20:41 Dose: 300 mg Documented by: PAULINE Ropinirole HCl (Requip) 1 mg PO [facility] Last Admin: 10/25/19 20:50 Dose: 1 mg Documented by: Admin: 10/24/19 21:37 Dose: 1 mg Documented by: Admin: 10/23/19 20:14 Dose: 1 mg Documented by: Admin: 10/22/19 21:12 Dose: 1 mg Documented by: JULITO Scopolamine (Transderm-Scop) 1 patch TOPICAL PREOP PRN PRN Reason: Nausea And Vomiting Last Admin: 10/22/19 08:58 Dose: 1 patch Documented by: KATIA Pena (Senokot) 2 tab PO HS [facility] Last Admin: 10/25/19 20:50 Dose: 2 tab Documented by: Admin: 10/24/19 21:37 Dose: 2 tab Documented by: Admin: 10/23/19 20:13 Dose: 2 tab Documented by: Admin: 10/22/19 21:12 Dose: 2 tab Documented by: JULITO Sodium Chloride (Saline Flush) 10 ml IV Q12 [facility] Last Admin: 10/26/19 09:42 Dose: 10 ml Documented by: [email or web address] Admin: 10/25/19 20:51 Dose: 10 ml Documented by: ALEJANDRA Shift Summary 10/26/19 04:39 Shift Summary by Magalys Ortiz A&O. Dressing to right knee, CDI. Medicated for pain with 2 [place] Q4h, Robaxin x1. Scheduled benadryl r/t itching from narcs. Up ad taisha with FWW in room, SBA in hallway. Voiding well. VSS on RA. Double lumen PICC placed yesterday, flushes well with good blood return. SL IV to Rt upper arm. Plan is to d/c today with OP ABO's arranged local to home ([facility] and [place]). Initialized on 10/26/19 04:39 - END OF NOTE
[2019-10-26] MEDS: DAPTOmycin 500 MG VIAL IV SCH (13:00)
--- NOTE | 2019-10-26 14:21 | Internal Med Progress Note ---
SUBJECTIVE Subjective Patient information: Note initiated : 10/26/19 at 2:17 pm Service Date, if different from initiated Date: [] Patient: Sherley Howard 64 y/o F admitted on 10/22/19 for Right Knee I&D. Chief Complaint: [] Interval history: Narrative: Patient is doing well. Endorses right knee pain at around 5 out of 10. Denies any fever, chills, nausea, vomiting, diarrhea. Is aware of post hospital antibiotic plan and follow-up. Answered questions for her and her Constitutional Vitals: Vital Signs Temp Pulse Resp BP Pulse Ox 36.8 C 85 18 110/71 95 10/26/19 12:00 10/26/19 12:00 10/26/19 12:00 10/26/19 12:00 10/26/19 12:00 Period Temp Pulse Resp BP Sys/Spann Pulse Ox Last 24 Hr 36.7 C-37.2 C 78-86 16-18 108-129/71-83 92-96 Intake and Output 10/26/19 10/26/19 10/26/19 05:59 13:59 21:59 Intake Total 500 500 Output Total 1300 1000 Balance -800 -500 Intake & Output: Intake & Output 10/26/19 10/26/19 10/26/19 05:59 13:59 21:59 Intake Total 500 500 Output Total 1300 1000 Balance -800 -500 Intake: Oral 500 500 Output: Void Amount 1300 1000 Other: Meal Lunch Percent of Meal Consumed 75% Feeding Ability Assist with Tray Set Up Urine Appearance Clear Urine Color Bright Yellow Dark Yellow Urine Odor Strong Additional findings Additional findings: ao x 3 , in nad no thrush Right knee: Surgical incision site wrapped in a dressing. No redness, swelling around it. Tender to touch. No drainage. Able to move right knee with pain. Can wiggle toes without difficulty OBJ DATA Labs CBC & Chem 7: 10/23/19 05:18 10/25/19 08:53 Labs: Abnormal Lab Results 10/25/19 08:53 Glucose 152 H Meds: Medications Hydrocodone Bitart/Acetaminophen ([place] 10/325mg) 0 tab PO Q4HP PRN; Protocol PRN Reason: PAIN LEVEL 3-6 Last Admin: 10/26/19 12:17 Dose: 2 tab Documented by: Aspirin (Aspirin) 81 mg PO BID [facility] Last Admin: 10/26/19 09:41 Dose: 81 mg Documented by: Bisacodyl (Dulcolax) 10 mg ID Q2-3DAYS PRN PRN Reason: Constipation Daptomycin (Cubicin) 700 mg 8 mg/kg (700 mg) IV DAILY [facility]; Protocol Last Admin: 10/25/19 13:34 Dose: 700 mg Documented by: Dextrose (Dextrose 50%) 0 ml IV UD PRN PRN Reason: Hypoglycemia Diagnostic Test (Pha) (Accu-Chek) 1 each FS [facility] Last Admin: 10/26/19 07:12 Dose: 1 each Documented by: Diphenhydramine HCl (Benadryl) 25 mg PO Q6 [facility] Last Admin: 10/26/19 05:51 Dose: 25 mg Documented by: Docusate Sodium (Colace) 100 mg PO BID [facility] Last Admin: 10/26/19 09:41 Dose: 100 mg Documented by: Duloxetine HCl (Cymbalta) 60 mg PO DAILY [facility] Last Admin: 10/26/19 09:41 Dose: 60 mg Documented by: Glucose (Insta-Glucose) 15 gm PO PRN PRN PRN Reason: Hypoglycemia Heparin Sodium (Porcine) (Heparin 10 Units/Ml Flush) 2 ml IV Q12 [facility] Last Admin: 10/26/19 09:42 Dose: 2 ml Documented by: Hydrochlorothiazide (Oretic) 12.5 mg PO DAILY [facility] Last Admin: 10/26/19 09:41 Dose: 12.5 mg Documented by: Insulin Human Lispro (Humalog) 0 unit SQ [facility]; Protocol Last Admin: 10/26/19 07:13 Dose: Not Given Documented by: Magnesium Hydroxide (Milk Of Magnesia) 30 ml PO BIDP PRN PRN Reason: Constipation Methocarbamol (Robaxin) 750 mg PO Q6HP PRN PRN Reason: Muscle Spasm Last Admin: 10/25/19 20:50 Dose: 750 mg Documented by: Morphine Sulfate (Morphine) 0 mg IV Q1HP PRN; Protocol PRN Reason: PAIN LEVEL > 6 Last Admin: 10/24/19 20:41 Dose: 2 mg Documented by: Omeprazole (Prilosec) 20 mg PO QHS [facility] Last Admin: 10/25/19 20:51 Dose: 20 mg Documented by: Ondansetron HCl (Zofran) 4 mg IV Q4HP PRN; Protocol PRN Reason: Nausea And Vomiting Last Admin: 10/22/19 14:07 Dose: 4 mg Documented by: Polyethylene Glycol (Miralax) 17 gm PO DAILYP PRN PRN Reason: Constipation Rifampin (Rifampin) 300 mg PO BID@0700,1999 [facility]; Protocol Last Admin: 10/26/19 07:01 Dose: 300 mg Documented by: Ropinirole HCl (Requip) 1 mg PO [facility] Last Admin: 10/25/19 20:50 Dose: 1 mg Documented by: Scopolamine (Transderm-Scop) 1 patch TOPICAL PREOP PRN PRN Reason: Nausea And Vomiting Last Admin: 10/22/19 08:58 Dose: 1 patch Documented by: Senna (Senokot) 2 tab PO [facility] Last Admin: 10/25/19 20:50 Dose: 2 tab Documented by: Sodium Biphosphate/Sodium Phosphate (Fleets Adult) 1 dose ID Q3-4DAYS PRN PRN Reason: Constipation Sodium Chloride (Saline Flush) 10 ml IV UD PRN PRN Reason: FLUSH Sodium Chloride (Saline Flush) 10 ml IV Q12 [facility] Last Admin: 10/26/19 09:42 Dose: 10 ml Documented by: Throat Lozenges (Cepacol) 1 lozenge PO PRN PRN PRN Reason: Sore Throat A/P Time Spent With Patient Time: Total time spent is greater than 50% in coordination of care (as documented) at patient's floor/unit and/or counseling patient: A: 1. 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 Per Ortho plan is for one-stage exchange and no subseq surgeries - ON IV vanc and IV ceftriaxone initially and then on IV daptomycin. 2. DM2 Recommendations: -Continue IV Daptomycin at 8 mg/kg (round off dose is 700 mg q24 hrs) - continue PO Rifampin 300 mg bid. - anticipate 6 weeks of IV therapy with tentative stop date of December 03, 2019 and subsequently PO antibiotic therapy for 4.5 mnths - Per CM: pt will do IV Daptomycin Mon-Fri at [facility] and on Friday- Friday at [facility] - follow up labs: CMP, CK weekly ESR and CRP every other week - ID clinic f/u in 5 weeks. Rafael Ulloa MD Infectious Diseases
== END 2019-10-26 13:47 | disposition home or self-care (01) | DRG 487 ==
LOC: SUATTDRO → MEDSUROUT 07:30 → MEDSUR 07:33
PROVIDERS: ADMIT Orthopaedic Surgery; ATTEND Orthopaedic Surgery